=== PATIENT | female | born 1985 | race Two or more races ===

== ENCOUNTER 2016-08-28 10:57 | Emergency (ER) | payer OTHER ==
[~2016-08-28] VITALS: Ht 160 cm; Wt 98.4 kg
[2016-08-28 11:11] VITALS: BP 150/104
[2016-08-28] MEDS ORDERED: KEFLEX500 MG ORAL (11:31)
[2016-08-28] MEDS ORDERED: OCUFLOX5 ML RIGHT EYE (11:31)
[2016-08-28 11:45] VITALS: BP 118/69
--- NOTE | 2016-08-29 08:13 | Emergency Room Report ---
History of Present Illness General Chief Complaint: Eye Problems Source: Patient Present Illness HPI 31-year-old female presents to ED complaining of right eye pain and swelling in the right eye discharge. States symptoms started 2 days ago. Notes swelling and redness to the right eye and eyelid. Notes discharge. Pain is an 8/10, throbbing, nonradiating. Denies any photophobia, denies any blurry vision. Denies fevers or chills. No other aggravating or relieving factors. Denies any other associated symptoms Allergies: Coded Allergies: No Known Allergies (Unverified , 08/28/16) Patient History Past Medical History: HTN Past Surgical History: none Pertinent Family History: none Social History: Denies: alcohol use, drug use, smoking Last Menstrual Period: 08/11/16 Now: No Immunizations: UTD Reviewed Nursing Documentation: PMH: Agreed, PSxH: Agreed Nursing Documentation-PMH Hx Hypertension: Yes Review of Systems All Other Systems: negative except mentioned in HPI Physical Exam Vital Signs Date Time Temp Pulse Resp B/P Pulse Ox O2 Delivery O2 Flow Rate FiO2 08/28/16 11:04 98.2 61 15 150/104 100 08/28/16 11:45 Room Air Sp02 EP Interpretation: reviewed, normal General Appearance: no apparent distress, alert, GCS 15, non-toxic Head: normocephalic Eyes: right eye Scleral Injection, right eye other - R upper and lower lid swelling. discharge ENT: hearing grossly normal, normal pharynx, no angioedema, normal voice Neck: full range of motion, supple/symm/no masses Respiratory: chest non-tender, lungs clear, normal breath sounds, speaking full sentences Cardiovascular #1: regular rate, rhythm, no edema Gastrointestinal: normal inspection Rectal: deferred Genitourinary: no CVA tenderness Musculoskeletal: normal inspection Neurologic: alert, oriented x3, responsive, motor strength/tone normal, sensory intact, speech normal Psychiatric: normal inspection Skin: normal inspection Lymphatic: normal inspection Medical Decision Making Diagnostic Impression: Primary Impression: Eyelid cellulitis Qualified Codes: H00.033 - Abscess of eyelid right eye, unspecified eyelid Additional Impression: Conjunctivitis Qualified Codes: H10.31 - Unspecified acute conjunctivitis, right eye ER Course Hospital Course 31-year-old F presents to ED with R eyelid swelling, R eye discharge Differential diagnoses include: conjunctivitis, traumatic iritis, foreign body, corneal abrasion Clinical course Patient placed on stretcher. After initial history, physical exam revealed a female no acute distress. There is injected conjunctiva right eyes. The upper and lower eyelids are swollen and erythematous. There is some discharge noted. Pupils equally reactive to light bilaterally. No evidence of foreign body. Clinical findings consistent with conjunctivitis. Diagnosis - conjunctivitis, eyelid cellulitis Stable and discharged to home with prescription for Keflex, Ocuflox. Followup with PMD/Optho. Return to ED if symptoms recur or worsen Last Vital Signs Date Time Temp Pulse Resp B/P Pulse Ox O2 Delivery O2 Flow Rate FiO2 08/28/16 11:45 70 16 118/69 99 Room Air 08/28/16 11:11 98.2 Status: improved Disposition: HOME, SELF-CARE Condition: Stable Scripts Ofloxacin (OCUFLOX) 5 Ml Drops 1 DROP RIGHT EYE QID for 7 Days, #5 ML Prov: LUKE MCPHERSON M.D. 08/28/16 Cephalexin* (KEFLEX*) 500 Mg Capsule 500 MG ORAL Q6H, #28 CAP 0 Refills Prov: LUKE MCPHERSON M.D. 08/28/16 Patient Instructions: Bacterial Conjunctivitis, [id number] LUKE MCPHERSON M.D. Aug 29, 2016 08:13
== END 2016-08-28 11:45 | disposition home or self-care (01) ==
LOC: EMR 11:25
DX: H00.033 Abscess of eyelid right eye, unspecified eyelid (principal); H10.9 Unspecified conjunctivitis; I10 Essential (primary) hypertension
CPT/HCPCS: 99284

== ENCOUNTER 2017-04-24 10:09 | Emergency (ER) | payer OTHER ==
[~2017-04-24] VITALS: Ht 160 cm; Wt 96.6 kg
[~2017-04-24 10:09] MED LIST: KEFLEX500 MG ORAL; OCUFLOX5 ML RIGHT EYE
[2017-04-24] MEDS ORDERED: UNOBMED (10:17)
[2017-04-24 10:23] VITALS: BP 148/85
[2017-04-24] MEDS ORDERED: IBUPROFEN600 MG ORAL (10:34)
[2017-04-24] MEDS ORDERED: NASAL DECONGEST30 ML NS (10:34)
--- NOTE | 2017-04-24 10:47 | Emergency Room Report ---
History of Present Illness General Chief Complaint: General Complaint Source: Patient Present Illness HPI 32-year-old female presents with congestion, runny nose for 5 days. Clear nasal discharge. Also a slight cough. Cough is productive with clear phlegm. Pt still eating/drinking well. no sick contacts. No recent travel. No SOB, cp, abdominal pain, n/v/d. Patient has been using Vicks without relief Allergies: Coded Allergies: No Known Allergies (Unverified , 08/28/16) Patient History Past Medical History: see triage record Past Surgical History: none Pertinent Family History: none Last Menstrual Period: Current. Reviewed Nursing Documentation: PMH: Agreed, PSxH: Agreed Nursing Documentation-PMH Past Medical History: No History, Except For Hx Hypertension: Yes Review of Systems All Other Systems: negative except mentioned in HPI Physical Exam Vital Signs Date Time Temp Pulse Resp B/P (MAP) Pulse Ox O2 Delivery O2 Flow Rate FiO2 04/24/17 10:14 98.4 79 20 148/85 97 Room Air 98.4 Sp02 EP Interpretation: reviewed, normal General Appearance: alert, GCS 15, non-toxic, mild distress Head: normocephalic, atraumatic Eyes: bilateral eye normal inspection, bilateral eye PERRL, bilateral eye EOMI ENT: normal ENT inspection, normal pharynx, normal voice, moist mucus membranes Neck: normal inspection, full range of motion, supple Respiratory: normal inspection, lungs clear, normal breath sounds, no respiratory distress, no retraction, no wheezing, speaking full sentences, chest symmetrical Cardiovascular #1: normal inspection, regular rate, rhythm, no edema, normal capillary refill Cardiovascular #2: 2+ radial (R), 2+ radial (L) Gastrointestinal: normal inspection, non tender, soft, non-distended, no guarding Musculoskeletal: normal inspection, back normal, normal range of motion, non- tender Neurologic: normal inspection, alert, oriented x3, responsive, motor strength/ tone normal, sensory intact, normal gait, speech normal Psychiatric: normal inspection, judgement/insight normal, memory normal Skin: normal inspection, normal color, no rash, warm/dry, well hydrated, normal turgor Medical Decision Making Diagnostic Impression: Primary Impression: Viral upper respiratory illness ER Course 32-year-old female with, runny nose, cough Appears non- toxic, well hydrated, tolerating PO DDX: Viral URI Plan: Motrin ER course: Pt stable in ED, remains nontoxic appearing, no sob. Tolerating PO Disposition: Patient discharged to home with Motrin and nasal spray Patient instructed to follow up with PMD in 1 week Very strict return precautions discussed with patient such as intractable fever and chills, unable to eat or drink, severe chest pain or shortness of breath. Patient verbalized understanding and agrees with plan. Please note that this Emergency Department Report was dictated using [employer] head technology software, occasionally this can lead to erroneous entry secondary to interpretation by the dictation equipment Last Vital Signs Date Time Temp Pulse Resp B/P (MAP) Pulse Ox O2 Delivery O2 Flow Rate FiO2 04/24/17 10:23 98.4 20 148/85 97 Room Air 98.4 04/24/17 10:14 79 Disposition: HOME, SELF-CARE Condition: Improved Scripts Ibuprofen* (MOTRIN*) 600 Mg Tablet 600 MG ORAL Q8H Y for For Pain, #30 TAB 0 Refills Prov: Nayla Ramos M.D. 04/24/17 Oxymetazoline Hcl (NASAL DECONGESTANT) 30 Ml Harris 30 ML NS BID, #1 SPRAY Prov: Nayla Ramos M.D. 04/24/17 Patient Instructions: Upper Respiratory Infection, Adult, [id number] Nayla Ramos M.D. Apr 24, 2017 10:47
[2017-04-24 10:55] VITALS: BP 148/85
== END 2017-04-24 10:57 | disposition home or self-care (01) ==
LOC: EMR 10:25
DX: J06.9 Acute upper respiratory infection, unspecified (principal); B34.9 Viral infection, unspecified; I10 Essential (primary) hypertension
CPT/HCPCS: 99284